=== PATIENT | female | born 1985 | race Caucasian/White ===

== ENCOUNTER 2016-08-18 12:14 | Emergency (ER) | payer MEDICAID ==
[2016-08-18] MEDS ORDERED: PHENAZOPYRIDINE 100 MG TABLET PO STA (14:03)
[2016-08-18] MEDS ORDERED: CEPHALEXIN 250 MG CAPSULE PO STA (14:03)
[2016-08-18] MEDS ORDERED: CEPHALEXIN 250 MG CAPSULE PO ONE (14:16)
[2016-08-18] MEDS ORDERED: PHENAZOPYRIDINE 100 MG TABLET PO ONE (14:16)
== END 2016-08-18 14:40 | disposition home or self-care (01) ==
DX: N30.00 Acute cystitis without hematuria (principal); Z87.440 Personal history of urinary (tract) infections; I10 Essential (primary) hypertension; E78.00 Pure hypercholesterolemia, unspecified; E03.9 Hypothyroidism, unspecified; Z87.891 Personal history of nicotine dependence
CPT/HCPCS: 81003; 81025; 99283; A9270

== ENCOUNTER 2017-12-22 11:18 | Outpatient (CLI) | payer MEDICAID ==
[2017-12-22 17:24] LABS: HGB - HEMOGLOBIN 14.2 g/dL (12.0-16.0); MEAN CORPUSCULAR HEMOGLOBIN 33.9 pg (27.0-31.0); MEAN CORPUSCULAR VOLUME 99.8 fL (81.0-99.0); MEAN PLATELET VOLUME 10.1 fL (7.9-10.8); RED BLOOD COUNT 4.18 10^6/uL (4.20-5.40); RED CELL DISTRIBUTION WIDTH 13.1 % (12.0-15.0); WHITE BLOOD COUNT 5.8 x10^3/uL (4.8-10.8)
[2017-12-22 17:42] LABS: ALBUMIN 3.8 g/dL (3.2-5.5); ALKALINE PHOSPHATASE 26 IU/L (42-121); ALT ALANINE AMINOTRANSFERASE 19 IU/L (10-60); AST ASPARTATE AMINOTRANSFERASE 20 IU/L (10-42); BUN - BLOOD UREA NITROGEN 8 mg/dL (6-20); CALCIUM 8.8 mg/dL (8.5-10.3); CARBON DIOXIDE - CO2 23 mmol/L (21-32); CHLORIDE 104 mmol/L (101-111); CHOL/HDL RATIO 2.8 (<4.4); CHOLESTEROL 218 mg/dL; CREATININE 0.8 mg/dL (0.4-1.0); GFR - MDRD 82 (>89); GLUCOSE 89 mg/dL (70-100); HDL CHOLESTEROL 79 mg/dL; LDL CHOLESTEROL,CALCULATED 120 mg/dL; LDL/HDL RATIO 1.5 (<4.4); SODIUM 134 mmol/L (135-145); TOTAL PROTEIN 7.5 g/dL (6.7-8.2); VLDL CHOLESTEROL 19 mg/dL
== END 2017-12-22 11:19 | disposition home or self-care (01) ==
LOC: LAB.F 11:18
PROVIDERS: ATTEND Internal Medicine
DX: E78.5 Hyperlipidemia, unspecified (principal); E03.9 Hypothyroidism, unspecified; D64.9 Anemia, unspecified
CPT/HCPCS: 36415; 80053; 80061; 83721; 84443; 85027

== ENCOUNTER 2018-05-25 12:11 | Outpatient (CLI) | payer MEDICAID ==
[2018-05-25 17:41] LABS: BASOPHILS % (AUTO) 0.6 %; EOSINOPHILS # (AUTO) 0.1 10^3/uL (0.0-0.7); EOSINOPHILS % (AUTO) 1.1 %; HGB - HEMOGLOBIN 13.7 g/dL (12.0-16.0); LYMPHOCYTES # (AUTO) 1.6 10^3/uL (1.5-3.5); LYMPHOCYTES % (AUTO) 34.8 %; MEAN CORPUSCULAR HGB CONC 32.8 g/dL (32.0-36.0); MEAN CORPUSCULAR VOLUME 97.6 fL (81.0-99.0); MEAN PLATELET VOLUME 9.1 fL (7.9-10.8); MONOCYTES # (AUTO) 0.3 10^3/uL (0.0-1.0); MONOCYTES % (AUTO) 7.2 %; NEUTROPHILS # (AUTO) 2.6 10^3/uL (1.5-6.6); NEUTROPHILS % (AUTO) 56.3 %; PLT - PLATELET COUNT 220 10^3/uL (130-450); RED BLOOD COUNT 4.28 10^6/uL (4.20-5.40); RED CELL DISTRIBUTION WIDTH 12.8 % (12.0-15.0); WHITE BLOOD COUNT 4.6 x10^3/uL (4.8-10.8)
[2018-05-25 18:29] LABS: CALCIUM 8.9 mg/dL (8.5-10.3); CREATININE 0.7 mg/dL (0.4-1.0)
== END 2018-05-25 12:12 | disposition home or self-care (01) ==
LOC: LAB.F 12:11
PROVIDERS: ATTEND Internal Medicine
DX: E03.9 Hypothyroidism, unspecified (principal); I48.92 Unspecified atrial flutter; Z79.01 Long term (current) use of anticoagulants
CPT/HCPCS: 36415; 80048; 84443; 85025

== ENCOUNTER 2018-08-07 11:25 | Outpatient (CLI) | payer MEDICAID ==
[2018-08-09 11:48] LABS: HCG UR QUAL NEGATIVE
== END 2018-08-07 23:59 | disposition home or self-care (01) ==
LOC: LAB.R 11:25
PROVIDERS: ATTEND Registered Nurse
DX: N39.0 Urinary tract infection, site not specified (principal)
CPT/HCPCS: 81025

== ENCOUNTER 2019-04-23 08:00 | Outpatient (CLI) | payer MEDICAID ==
[2019-04-23 17:17] LABS: BASOPHILS % (AUTO) 0.7 %; EOSINOPHILS # (AUTO) 0.1 10^3/uL (0.0-0.7); EOSINOPHILS % (AUTO) 1.8 %; HGB - HEMOGLOBIN 14.4 g/dL (12.0-16.0); LYMPHOCYTES # (AUTO) 1.6 10^3/uL (1.5-3.5); LYMPHOCYTES % (AUTO) 30.3 %; MEAN CORPUSCULAR HEMOGLOBIN 31.9 pg (27.0-31.0); MEAN CORPUSCULAR HGB CONC 31.5 g/dL (32.0-36.0); MEAN CORPUSCULAR VOLUME 101.1 fL (81.0-99.0); MEAN PLATELET VOLUME 11.7 fL (7.9-10.8); MONOCYTES # (AUTO) 0.4 10^3/uL (0.0-1.0); MONOCYTES % (AUTO) 7.6 %; NEUTROPHILS # (AUTO) 3.2 10^3/uL (1.5-6.6); NEUTROPHILS % (AUTO) 59.4 %; PLT - PLATELET COUNT 268 10^3/uL (130-450); RED BLOOD COUNT 4.52 10^6/uL (4.20-5.40); RED CELL DISTRIBUTION WIDTH 12.2 % (12.0-15.0); WHITE BLOOD COUNT 5.4 x10^3/uL (4.8-10.8)
[2019-04-23 17:43] LABS: ALBUMIN 3.9 g/dL (3.2-5.5); ALBUMIN/GLOBULIN RATIO 1.1 (1.0-2.2); ALKALINE PHOSPHATASE 40 IU/L (42-121); ALT ALANINE AMINOTRANSFERASE 15 IU/L (10-60); AST ASPARTATE AMINOTRANSFERASE 17 IU/L (10-42); BILIRUBIN,TOTAL 0.8 mg/dL (0.2-1.0); BUN - BLOOD UREA NITROGEN 8 mg/dL (6-20); CALCIUM 8.8 mg/dL (8.5-10.3); CARBON DIOXIDE - CO2 27 mmol/L (21-32); CHLORIDE 106 mmol/L (101-111); CHOL/HDL RATIO 2.6 (<4.4); CHOLESTEROL 258 mg/dL; CREATININE 0.7 mg/dL (0.4-1.0); GFR - MDRD 95 (>89); GLUCOSE 105 mg/dL (70-100); HDL CHOLESTEROL 100 mg/dL; LDL CHOLESTEROL,CALCULATED 143 mg/dL; LDL/HDL RATIO 1.4 (<4.4); SODIUM 138 mmol/L (135-145); TOTAL PROTEIN 7.3 g/dL (6.7-8.2); VLDL CHOLESTEROL 15 mg/dL
== END 2019-04-23 23:59 | disposition home or self-care (01) ==
LOC: LAB.S 08:00
PROVIDERS: ATTEND Internal Medicine
DX: E78.5 Hyperlipidemia, unspecified (principal); E03.9 Hypothyroidism, unspecified; M25.50 Pain in unspecified joint; M79.10 Myalgia, unspecified site
CPT/HCPCS: 36415; 80053; 80061; 83721; 84443; 85025

== ENCOUNTER 2019-04-23 10:34 | Outpatient (CLI) | payer MEDICAID | END 2019-04-23 10:35 | disposition home or self-care (01) | LOC: LAB.S 10:34 | PROVIDERS: ATTEND Internal Medicine | DX: Z53.9 Procedure and treatment not carried out, unspecified reason (principal) ==

== ENCOUNTER 2019-07-03 09:55 | Outpatient (CLI) | payer MEDICAID ==
[2019-07-03 17:42] LABS: ALBUMIN 4.1 g/dL (3.2-5.5); ALBUMIN/GLOBULIN RATIO 1.2 (1.0-2.2); ALKALINE PHOSPHATASE 51 IU/L (42-121); ALT ALANINE AMINOTRANSFERASE 26 IU/L (10-60); AST ASPARTATE AMINOTRANSFERASE 26 IU/L (10-42); BUN - BLOOD UREA NITROGEN 13 mg/dL (6-20); CALCIUM 8.9 mg/dL (8.5-10.3); CARBON DIOXIDE - CO2 24 mmol/L (21-32); CHLORIDE 104 mmol/L (101-111); CHOL/HDL RATIO 1.8 (<4.4); CHOLESTEROL 227 mg/dL; CREATININE 0.7 mg/dL (0.4-1.0); GFR - MDRD 95 (>89); GLUCOSE 89 mg/dL (70-100); HDL CHOLESTEROL 128 mg/dL; SODIUM 138 mmol/L (135-145); TOTAL PROTEIN 7.5 g/dL (6.7-8.2)
== END 2019-07-03 09:56 | disposition home or self-care (01) ==
LOC: LAB.S 09:55
PROVIDERS: ATTEND Internal Medicine
DX: E78.5 Hyperlipidemia, unspecified (principal)
CPT/HCPCS: 36415; 80053; 80061; 83721

== ENCOUNTER 2020-03-12 10:55 | Emergency (ER) | payer MEDICAID ==
[2020-03-12] MEDS ORDERED: HYDROcod/ACETAM 5/325 MG TABLET PO STA (11:30)
--- NOTE | 2020-03-12 11:59 | XRAY Report ---
PROCEDURE: Ankle 3 View LT INDICATIONS: L ankle pain s/p fall TECHNIQUE: 3 views of the ankle were acquired. COMPARISON: None FINDINGS: Bones: [place] B fracture of the distal fibula. Ankle mortise is normally aligned. No suspicious bony lesions. Mild plantar calcaneal bone spur. Soft tissues: No tibiotalar joint effusion. Achilles tendon appears normal. Soft tissue swelling is noted and ligamentous injury cannot be excluded. IMPRESSION: Lateral malleolus fracture. Reviewed by: Haley Nicole MD, PhD on 03/12/2020 11:58 AM PDT Approved by: Haley Nicole MD, PhD on 03/12/2020 11:58 AM PDT Station ID: [id number]
--- NOTE | 2020-03-12 12:07 | CT Report ---
PROCEDURE: HEAD WO INDICATIONS: head injury, LOC TECHNIQUE: Noncontrast 4.5 mm thick angled axial sections acquired from the foramen magnum to the vertex. For r adiation dose reduction, the following was used: automated exposure control, adjustment of mA and/or kV according to patient size. COMPARISON: None. FINDINGS: Image quality: Excellent. CSF spaces: Basal cisterns are patent. No extra-axial fluid collections. Ventricles are normal in size and shape. Brain: No midline shift. No intracranial masses or hemorrhage. Rodriguez-white matter interface is norm al. Skull and face: Calvarium and visualized facial bones are intact, without suspicious lesions. Sinuses: Visualized sinuses and mastoids are clear. IMPRESSION: No acute intracranial disease process. Reviewed by: Haley Nicole MD, PhD on 03/12/2020 12:05 PM PDT Approved by: Haley Nicole MD, PhD on 03/12/2020 12:05 PM PDT Station ID: [id number]
--- NOTE | 2020-03-12 13:02 | ED Physician Documentation ---
History of Present Illness - Stated complaint Stated Complaint: GL, LT ANKLE PAIN, HIT HEAD - Chief complaint Chief Complaint: Trauma Hd/Nk - History obtained from History obtained from: Patient - History of Present Illness Timing: Yesterday Pain level max: 9 Pain level now: 6 - Additonal information Additional information: 34-year-old female presents to the emergency department after a ground-level fall last night. Struck the right side of her head. Complains of pain to the left ankle. Unable to bear weight today. Worse with movement, better with rest. No loss of consciousness. No vomiting. Review of Systems Constitutional: denies: Fever, Chills GI: denies: Vomiting, Diarrhea Skin: denies: Rash Musculoskeletal: denies: Neck pain, Back pain Neurologic: reports: Headache, Head injury PD PAST MEDICAL HISTORY - Past Medical History Past Medical History: Yes Cardiovascular: Hypertension, High cholesterol, Murmur Endocrine/Autoimmune: HyPOthyroidism - Past Surgical History Past Surgical History: No - Present Medications Home Medications: Ambulatory Orders Medication Instructions Recorded Confirmed Levothyroxine [Synthroid] 0 mg PO DAILY 03/18/16 08/18/16 lisinopriL [Lisinopril] 0 mg PO DAILY 03/18/16 08/18/16 Cephalexin [Keflex] 500 mg PO Q6H #28 capsule 08/18/16 HYDROcod/ACETAM 5/325 [Alcove 5/325] 1 - 2 ea PO Q6H PRN #14 tablet 03/12/20 - Allergies Allergies/Adverse Reactions: Allergies Allergy/AdvReac Type Severity Reaction Status Date / Time Sulfa (Sulfonamide Allergy Rash Verified 03/12/20 11:04 Antibiotics) sulfamethoxazole Allergy Rash Verified 03/12/20 11:04 [From Bactrim] trimethoprim [From Bactrim] Allergy Rash Verified 03/12/20 11:04 - Social History Does the pt smoke?: No Smoking Status: Former smoker Does the pt drink ETOH?: Yes Does the pt have substance abuse?: No - Family History Family history: reports: Non contributory - Immunizations Immunizations are current?: Yes Immunizations: TDAP current <10years PD ED PE NORMAL - Vitals Vital signs reviewed: Yes - General General: Alert and oriented X 3, No acute distress - HEENT HEENT: Moist mucous membranes, Other (abrasion to R forehead. TTP. no laceration to repair) - Neck Neck: Supple, no meningeal sign - Cardiac Cardiac: RRR - Respiratory Respiratory: No respiratory distress, Clear bilaterally - Derm Derm: Warm and dry - Extremities Extremities: Other (L ankle TTP over the lateral malleolus. NVI. no swelling or deformity. No tenderness over the foot or remainder of the ankle) - Neuro Neuro: Alert and oriented X 3 Results - Vitals Vitals: Vital Signs - 24 hr 03/12/20 03/12/20 11:00 13:45 Temperature 36.4 C L Heart Rate 99 89 Respiratory 16 18 Rate Blood Pressure 130/87 H 126/90 H O2 Saturation 98 96 Oxygen O2 Source Room air - Rads (name of study) head CT Radiology: Prelim report reviewed, EMP read contemporaneously, See rad report (normal) ankle xray left Radiology: Prelim report reviewed, EMP read contemporaneously, See rad report (Distal fibula fracture) Procedures - Splint (location) L ankle Splint applied by: Physician, Tech Type of splint: Fiberglass, Short leg, Posterior Other: Patient tolerated well, No complications, Neurovascular intact, Crutches provided PD MEDICAL DECISION MAKING - ED course Complexity details: reviewed results, re-evaluated patient, considered differential, d/w patient, d/w family ED course: No acute findings on head CT. Tetanus up-to-date. Head injury instructions given at bedside. Patient has a left distal fibula fracture. Placed in a short leg posterior splint and given crutches. We will prescribe pain medication for home as well. Patient will follow-up with orthopedics for further care. Patient counseled regarding signs and symptoms for which I believe and urgent re-evaluation would be necessary. Patient with good understanding of and agreement to plan and is comfortable going home at this time This document was made in part using voice recognition software. While efforts are made to proofread this document, sound alike and grammatical errors may occur. Departure - Departure Disposition: 01 Home, Self Care Clinical Impression: Closed head injury Qualifiers: Encounter type: initial encounter Qualified Code(s): S09.90XA - Unspecified injury of head, initial encounter Fracture of distal fibula Qualifiers: Encounter type: initial encounter Fracture type: closed Fracture morphology: unspecified fracture morphology Laterality: left Qualified Code(s): S82.832A - Other fracture of upper and lower end of left fibula, initial encounter for closed fracture Condition: Good Instructions: ED Head Injury Closed, ED Fx Ankle Lateral Malleolus Follow-Up: [facility] [Provider Group] - Within 1 week Prescriptions: HYDROcod/ACETAM 5/325 [Alcove 5/325] 1 - 2 ea PO Q6H PRN #14 tablet PRN Reason: Pain Comments: Return if you worsen. Follow-up with orthopedics for further care. Do not bear weight until released by orthopedics. Do not drink alcohol or drive while on narcotic pain medicine. Note that many narcotic pain relievers also contain tylenol/acetaminophen. Please ensure that your total dose of acetaminophen from all sources does not exceed 3 grams (3000mg) per day. You may constipated on this medication, take a stool softener such as "Colace" twice a day while you are on it. Also recommend a wvcr-eoi-swifelf laxative such as senna or MiraLAX any day that you do not have a bowel movement. If you received narcotic pain medication in the emergency department, do not drive or operate machinery for the next 24 hours. Discharge Date/Time: 03/12/20 13:46
[2020-03-12 16:47] VITALS: BP 126/90
== END 2020-03-12 13:46 | disposition home or self-care (01) ==
LOC: ED 10:55
DX: S82.62XA Displaced fracture of lateral malleolus of left fibula, initial encounter for closed fracture (principal); S09.90XA Unspecified injury of head, initial encounter; S00.81XA Abrasion of other part of head, initial encounter; W01.0XXA Fall on same level from slipping, tripping and stumbling without subsequent striking against object, initial encounter; Y92.002 Bathroom of unspecified non-institutional (private) residence as the place of occurrence of the external cause; I10 Essential (primary) hypertension; M77.32 Calcaneal spur, left foot; Z87.891 Personal history of nicotine dependence
CPT/HCPCS: 29515; 70450; 73610; 99284; A9270

== ENCOUNTER 2020-03-20 11:48 | Outpatient (CLI) | payer MEDICAID ==
--- NOTE | 2020-03-20 16:50 | XRAY Report ---
PROCEDURE: Ankle 3 View LT INDICATIONS: NONDISPLACED FRACTURE OF LAT MALLEOLUS LT FIBULA TECHNIQUE: 3 views of the ankle were acquired. COMPARISON: X-ray ankle 03/12/2020 FINDINGS: Bones: Stable alignment and unchanged appearance of distal fibular fracture. Calcaneal spur is again noted. Ankle mortise is normally aligned. No suspicious bony lesions. Soft tissues: Lateral malleolar soft tissue edema is present. Achilles tendon appears normal. IMPRESSION: Stable alignment of distal fibular fracture as above. Reviewed by: Snow Finn MD on 03/20/2020 4:49 PM PST Approved by: Snow Finn MD on 03/20/2020 4:49 PM PST Station ID: [id number]
== END 2020-03-20 11:49 | disposition home or self-care (01) ==
LOC: DI 11:48
PROVIDERS: ATTEND Orthopaedic Surgery
DX: S82.65XA Nondisplaced fracture of lateral malleolus of left fibula, initial encounter for closed fracture (principal)

== ENCOUNTER 2020-04-20 11:58 | Outpatient (CLI) | payer MEDICAID ==
--- NOTE | 2020-04-20 13:17 | XRAY Report ---
PROCEDURE: Ankle 3 View LT INDICATIONS: NONDISPLACED FX OF LAAT MALLEOLUS LT FIBULA TECHNIQUE: 3 views of the ankle were acquired. COMPARISON: 03/20/2020 FINDINGS: Bones: No change in mildly displaced oblique fracture of the distal fibula Soft tissues: No tibiotalar joint effusion. Achilles tendon appears normal. IMPRESSION: No change in distal fibular fracture. Reviewed by: Low March MD on 04/20/2020 1:15 PM PST Approved by: Low March MD on 04/20/2020 1:15 PM PST Station ID: [id number]
== END 2020-04-20 11:59 | disposition home or self-care (01) ==
LOC: DI 11:58
PROVIDERS: ATTEND Orthopaedic Surgery
DX: S82.65XA Nondisplaced fracture of lateral malleolus of left fibula, initial encounter for closed fracture (principal)

== ENCOUNTER 2020-08-14 12:03 | Outpatient (CLI) | payer MEDICAID ==
[2020-08-14 16:13] LABS: RHEUMATOID FACTOR NEGATIVE (Negative)
[2020-08-18 06:41] LABS: ANA PATTERN Nuclear, Speckled; ANA SCREEN POSITIVE (NEGATIVE); ANA TITER 1:40 titer
[2020-08-18 17:21] LABS: DNA (DS) ANTIBODY 1 IU/mL
[2020-08-18 22:01] LABS: CYCLIC CITRULL PEPTIDE CCP IGG <16 UNITS
== END 2020-08-14 12:04 | disposition home or self-care (01) ==
LOC: LAB.S 12:03
PROVIDERS: ATTEND Physician Assistant
DX: R53.83 Other fatigue (principal); M25.50 Pain in unspecified joint; M79.10 Myalgia, unspecified site
CPT/HCPCS: 36415; 85651; 86038; 86140; 86200; 86225; 86430

== ENCOUNTER 2021-05-28 16:22 | Outpatient (CLI) | payer MEDICAID ==
[2021-05-29] LABS: CHLAMYDIA TRACHOMATIS DNA NEGATIVE (NEGATIVE); NEISSERIA GONORRHOEAE DNA NEGATIVE (NEGATIVE); TRICHOMONAS VAGINALIS DNA NEGATIVE (NEGATIVE)
[2021-05-29 00:07] LABS: BACTERIAL VAGINOSIS DNA NEGATIVE (NEGATIVE); CANDIDA GLABRATA DNA NEGATIVE (NEGATIVE); CANDIDA GROUP DNA NEGATIVE (NEGATIVE); CANDIDA KRUSEI DNA NEGATIVE (NEGATIVE); TRICHOMONAS VAGINALIS DNA NEGATIVE (NEGATIVE)
== END 2021-05-28 16:23 | disposition home or self-care (01) ==
LOC: LAB 16:22
PROVIDERS: ATTEND Physician Assistant
DX: N39.0 Urinary tract infection, site not specified (principal); Z11.3 Encounter for screening for infections with a predominantly sexual mode of transmission
CPT/HCPCS: 87077; 87086; 87181; 87491; 87591; 87661; 87801

== ENCOUNTER 2023-07-31 10:55 | Outpatient (CLI) | payer SELFPAY ==
[2023-07-31 15:14] LABS: BASOPHILS % (AUTO) 0.4 %; EOSINOPHILS % (AUTO) 0.6 %; HCT - HEMATOCRIT 42.9 % (37.0-47.0); HGB - HEMOGLOBIN 14.5 g/dL (12.0-16.0); LYMPHOCYTES # (AUTO) 1.2 10^3/uL (1.5-3.5); LYMPHOCYTES % (AUTO) 17.1 %; MEAN CORPUSCULAR HEMOGLOBIN 34.6 pg (27.0-31.0); MEAN CORPUSCULAR HGB CONC 33.8 g/dL (32.0-36.0); MEAN CORPUSCULAR VOLUME 102.4 fL (81.0-99.0); MEAN PLATELET VOLUME 11.6 fL (7.9-10.8); MONOCYTES # (AUTO) 0.5 10^3/uL (0.0-1.0); MONOCYTES % (AUTO) 6.9 %; NEUTROPHILS # (AUTO) 5.4 10^3/uL (1.5-6.6); NEUTROPHILS % (AUTO) 74.7 %; PLT - PLATELET COUNT 263 10^3/uL (130-450); RED BLOOD COUNT 4.19 10^6/uL (4.20-5.40); RED CELL DISTRIBUTION WIDTH 12.2 % (12.0-15.0); WHITE BLOOD COUNT 7.3 x10^3/uL (4.8-10.8)
[2023-07-31 15:54] LABS: ALBUMIN 4.2 g/dL (3.2-5.5); ALBUMIN/GLOBULIN RATIO 1.4 (1.0-2.2); ALKALINE PHOSPHATASE 42 IU/L (42-121); ALT ALANINE AMINOTRANSFERASE 10 IU/L (10-60); AST ASPARTATE AMINOTRANSFERASE 13 IU/L (10-42); BILIRUBIN,TOTAL 1.1 mg/dL (0.2-1.0); BUN - BLOOD UREA NITROGEN 8 mg/dL (6-20); CALCIUM 9.1 mg/dL (8.5-10.3); CARBON DIOXIDE - CO2 23 mmol/L (21-32); CHLORIDE 103 mmol/L (101-111); CHOL/HDL RATIO 2.5 (<4.4); CHOLESTEROL 223 mg/dL; CREATININE 0.7 mg/dL (0.6-1.3); GFR - MDRD 93 (>89); GLUCOSE 98 mg/dL (74-104); HDL CHOLESTEROL 91 mg/dL; LDL CHOLESTEROL,CALCULATED 110 mg/dL; LDL/HDL RATIO 1.2 (<4.4); POTASSIUM 3.5 mmol/L (3.5-4.5); SODIUM 134 mmol/L (135-145); TOTAL PROTEIN 7.2 g/dL (6.4-8.9); TRIGLYCERIDES 109 mg/dL (48-352); VLDL CHOLESTEROL 22 mg/dL
[2023-07-31 16:20] LABS: THYROID STIMULATING HORMONE 3.92 uIU/mL (0.34-5.60)
[2023-07-31 21:00] LABS: ESTIMATED AVERAGE GLUCOSE 77 mg/dL (70-100); HEMOGLOBIN A1c% 4.3 % (4.27-6.07)
[2023-08-01 06:10] LABS: HSV 2 IGG TYPE SPEC <0.91 index (0.00-0.90)
[2023-08-01 07:10] LABS: HCV AB Non Reactive (Non Reactive); HIV SCREEN 4TH GENERATION Non Reactive (Non Reactive)
== END 2023-07-31 10:56 | disposition home or self-care (01) ==
LOC: LAB.S 10:55
PROVIDERS: ATTEND Registered Nurse
DX: Z20.2 Contact with and (suspected) exposure to infections with a predominantly sexual mode of transmission (principal); Z13.9 Encounter for screening, unspecified; E78.5 Hyperlipidemia, unspecified; E03.9 Hypothyroidism, unspecified
CPT/HCPCS: 36415; 80053; 80061; 83036; 83721; 84443; 85025; 86592; 86695; 86696; 86803; 87389; 87491; 87591; 87661

== ENCOUNTER 2023-08-11 09:19 | Outpatient (CLI) | payer MEDICAID ==
[2023-08-11 22:21] LABS: CHLAMYDIA TRACHOMATIS DNA NEGATIVE (NEGATIVE); NEISSERIA GONORRHOEAE DNA NEGATIVE (NEGATIVE); TRICHOMONAS VAGINALIS DNA NEGATIVE (NEGATIVE)
== END 2023-08-11 09:20 | disposition home or self-care (01) ==
LOC: LAB.S 09:19
PROVIDERS: ATTEND Physician Assistant Medical
DX: Z20.2 Contact with and (suspected) exposure to infections with a predominantly sexual mode of transmission (principal)
CPT/HCPCS: 36415; 80053; 80061; 83036; 83721; 84443; 85025; 86592; 86695; 86696; 86803; 87389; 87491; 87591; 87661

== ENCOUNTER 2023-09-06 12:59 | Outpatient (CLI) | payer MEDICAID ==
--- NOTE | 2023-09-06 17:36 | CT Report ---
PROCEDURE: Lumbar Spine WO INDICATIONS: LUMBAR BACK PAIN TECHNIQUE: Noncontrast 3 mm thick sections acquired from the T12 level to the sacrum. Sagittal and coronal refo rmats were constructed. Dedicated oblique axial images were performed through the disk levels. Fo r radiation dose reduction, the following was used: automated exposure control, adjustment of mA and /or kV according to patient size. COMPARISON: Correlation is made with abdomen pelvis CT, 11/21/2021. FINDINGS: Image quality: Excellent. Bones: No acute vertebral body compression fractures. No suspicious lytic or blastic bony lesions. Central spinal caliber is of normal overall caliber. No pars defects. Minimal retrolisthesis can be seen at the L5-S1 level. T12-L1: Normal in appearance. L1-L2: Normal in appearance. L2-L3: Normal in appearance. L3-L4: Normal in appearance. L4-L5: The disc height is well-preserved. Mild disc bulge is seen, with a mild central disc protrus ion. Mild bilateral neural foraminal narrowing is seen. No significant central canal narrowing is se en. L5-S1: At least moderate loss of disc height is seen. Mild disc bulge is seen. A superimposed deacon tral disc protrusion is seen. Mild facet hypertrophy is seen. There is at least moderate bilateral n euroforaminal narrowing. Moderate central canal narrowing is seen. Soft tissues: No retroperitoneal masses or hematomas. Visualized aorta is normal in caliber. IMPRESSION: Focal premature L5-S1 degenerative change can be seen. If it would be helpful for clinical management decision making, please consider a dedicated, schedule d lumbar MRI for further evaluation (assuming that there is no contraindication). Reviewed by: Frandy Nava MD on 09/06/2023 4:35 PM NADER Approved by: Frandy Nava MD on 09/06/2023 4:35 PM NADER Station ID: [id number]
== END 2023-09-06 13:00 | disposition home or self-care (01) ==
LOC: DI 12:59
PROVIDERS: ATTEND Physician Assistant Medical
DX: M51.27 Other intervertebral disc displacement, lumbosacral region (principal); M51.26 Other intervertebral disc displacement, lumbar region; M51.36 Other intervertebral disc degeneration, lumbar region; M48.061 Spinal stenosis, lumbar region without neurogenic claudication; M51.37 Other intervertebral disc degeneration, lumbosacral region; M48.07 Spinal stenosis, lumbosacral region; M47.817 Spondylosis without myelopathy or radiculopathy, lumbosacral region

== ENCOUNTER 2023-09-09 08:00 | Outpatient (CLI) | payer MEDICAID ==
--- NOTE | 2023-09-09 15:16 | XRAY Report ---
PROCEDURE: Ankle 3+V LT INDICATIONS: LEFT ANKLE SPRAIN TECHNIQUE: 3 views of the ankle were acquired. COMPARISON: 04/20/2020, 03/20/2020, 03/12/2020. Correlation is made with the accompanying imaging. FINDINGS: Bones: There is a minimally displaced fracture seen involving the fifth metatarsal proximally. Along the medial aspect of the tibial plafond, there is mild irregularity, which is similar to the 20 20 priors, in retrospect. The previously seen distal fibular fracture has healed. No additional focal bony abnormalities are seen. The talar dome demonstrates an unremarkable appearan ce. A plantar calcaneal spur is incidentally noted. Soft tissues: No tibiotalar joint effusion. Achilles tendon appears normal. IMPRESSION: Minimally displaced proximal fifth metatarsal fracture. Reviewed by: Frandy Nava MD on 09/09/2023 2:15 PM NADER Approved by: Frandy Nava MD on 09/09/2023 2:15 PM NADER Station ID: [id number]
--- NOTE | 2023-09-09 15:17 | XRAY Report ---
PROCEDURE: Foot 3+V LT INDICATIONS: LEFT FOOT SPRAIN TECHNIQUE: 3 views of the foot were acquired. COMPARISON: Correlation is made with the accompanying imaging. FINDINGS: Bones: There is a minimally displaced fifth metatarsal fracture. No additional fractures or dislocat ions. No suspicious bony lesions. Soft tissues: No tibiotalar joint effusion. Achilles tendon appears normal. IMPRESSION: Minimally displaced fifth metatarsal fracture, which is better demonstrated on the accompanying ankle plain films. Reviewed by: Frandy Nava MD on 09/09/2023 2:15 PM NADER Approved by: Frandy Nava MD on 09/09/2023 2:15 PM NADER Station ID: [id number]
== END 2023-09-09 23:59 | disposition home or self-care (01) ==
LOC: DI.S 08:00
PROVIDERS: ATTEND Physician Assistant Medical
DX: S92.352A Displaced fracture of fifth metatarsal bone, left foot, initial encounter for closed fracture (principal)

== ENCOUNTER 2023-09-15 15:46 | Outpatient (CLI) | payer MEDICAID ==
--- NOTE | 2023-09-18 09:18 | MRI Report ---
PROCEDURE: Lumbar Spine WO INDICATIONS: BACK PAIN TECHNIQUE: Noncontrast sagittal T1 spin echo and T2 fast echo, sagittal STIR, axial T1 and T2 fast spin echo thr ough the lumbar spine. In cases with scoliosis, additional coronal T2 fast spin echo may be performe d. COMPARISON: CT lumbar spine dated 09/06/2023 FINDINGS: Image quality: Excellent. Alignment and Curvature: There is normal bony alignment. Bone Marrow: Marrow is of normal overall signal. No acute vertebral body compression fractures. Spinal Cord: Conus medullaris terminates at the L1-L2 level. Visualized cord demonstrates normal si gnal and size. Paraspinous Soft Tissues: No paravertebral masses. T12-L1: Normal in appearance. L1-L2: Normal in appearance. L2-L3: Normal in appearance. L3-L4: Normal in appearance. L4-L5: Disc bulge. Facet hypertrophy. No canal stenosis or foraminal stenosis. L5-S1: Posterior annulus tear plus moderate broad-based right paracentral disc protrusion, resultin g in mild to moderate central canal stenosis and a degree of impingement on the right S1 nerve root i n the right lateral recess. There is facet hypertrophy. There is mild to moderate bilateral foraminal stenosis. IMPRESSION: 1. There is underlying lower lumbar facet arthropathy. 2. At L5-S1, there is a moderate broad-based right paracentral disc protrusion, resulting in mild to moderate central canal stenosis and a degree of impingement on the right S1 nerve root in the right l ateral recess. Reviewed by: Ata Durand MD on 09/18/2023 9:16 AM PDT Approved by: Ata Durand MD on 09/18/2023 9:16 AM PDT Station ID: [id number]
== END 2023-09-15 15:47 | disposition home or self-care (01) ==
LOC: DI 15:46
PROVIDERS: ATTEND Physician Assistant Medical
DX: M51.36 Other intervertebral disc degeneration, lumbar region (principal); M47.816 Spondylosis without myelopathy or radiculopathy, lumbar region; M51.17 Intervertebral disc disorders with radiculopathy, lumbosacral region; M51.37 Other intervertebral disc degeneration, lumbosacral region; M48.07 Spinal stenosis, lumbosacral region

== ENCOUNTER 2023-10-16 08:00 | Outpatient (CLI) | payer MEDICAID | END 2023-10-16 23:59 | disposition home or self-care (01) | LOC: LAB 08:00 | PROVIDERS: ATTEND Physician Assistant Medical | DX: Z79.899 Other long term (current) drug therapy (principal) | CPT/HCPCS: 80307; 80321; 80347; 80349; 80366; 80373; 81599 ==